=== PATIENT | male | born 1960 | race African-American/Black ===

== ENCOUNTER 2018-09-23 06:53 | Inpatient (IN) | payer OTHER ==
[~2018-09-23] VITALS: Ht 188 cm; Wt 86.2 kg
[2018-09-23 09:16] VITALS: BP 114/81
[2018-09-23 10:24] LABS: ALBUMIN 4.2 g/dL (3.4-5.0); DIRECT BILIRUBIN 0.2 mg/dL (<0.1-0.3); TOTAL PROTEIN 9.2 g/dL (6.4-8.2)
[2018-09-23 10:28] LABS: MCV 81.4 fL (80.0-100.0)
[2018-09-23 10:29] LABS: HEMATOCRIT 46.3 % (42.0-52.0); HEMOGLOBIN 15.8 gm/dL (14.0-18.0); MCH 27.8 pg (26.0-34.0); MCHC 34.2 g/dL (28.0-37.0); RBC 5.69 mil/uL (4.50-6.00); WBC 10.8 thou/uL (4.0-11.0)
[2018-09-23 10:38] LABS: ALBUMIN 4.2 g/dL (3.4-5.0); CALCIUM 9.7 mg/dL (8.5-10.1); CREATININE 0.9 mg/dL (0.7-1.3); POTASSIUM 4.1 mmol/L (3.5-5.1); TOTAL PROTEIN 9.2 g/dL (6.4-8.2)
[2018-09-23 10:50] LABS: TSH 1.756 uIU/mL (0.358-3.740)
--- NOTE | 2018-09-23 11:26 | NUR ---
ARRIVES TO UNIT VIA CART FROM [facility] ER-58 YR OLD MALE. MEDICAL HX INCLUDES SEIZURE DO,HTN,SP CVA AND LA 2003,ETOH ABUSE.ADMITTED WITH RECENT COMMAND HALLUCINATIONS AND SUICIDAL IDEATION. STATES HEARS VOICES TELLING HIM HE IS BAD BUT "I JUST IGNORE THEM" DOES REPORT BEING OFF OF MEDS X 2 MONTHS STATING HE COULD NOT AFFORD THEM. UNABLE TO PROVIDE EXTENSIVE MEDICAL OR PSYCHIARTIC HX-IS ORINETED X3 BUT STATES "I JUST CAN'T REMEMBER ALL THAT WELL" VS WNL-DOES REPORT "ALL OVER " PAIN RATED A 5 ON 1-10 SCALE. SPEECH IS DIFFICULT TO UNDERSTAND-SLIGHTLY GARBLED BUT RESPONSES ARE RELEVENT AND GOAL DIRECTED FREQUENTLY STATES "I'M SORRY I CANT REMEMBER" ASSISTED TO BED WITH SBA X1-PROVIDED FOOD/FLUIDS-COOPERATIVE WITH ADMIT PAPERWORK. NO SKIN BREAKDOWN NOTED
--- NOTE | 2018-09-23 11:29 | EKG ---
[place] [address] [address] [place] [address] ELECTROCARDIOGRAM REPORT Name: ALYSON DAVIS Room #: [facility] ADM IN M.R.#: [id number] ������������������ Admission: 09/23/18 ������������������ Attend Phys: Aftab Stuart DO Discharge: ������������������ Date of : 60 Report #: [id number] ����������������������������������������������������������������� [id number] THIS REPORT FOR: //name// [facility] Test Date: 2018-09-23 Test Time: 08:58:13 Pat Name: ALYSON DAVIS Department: Room: [facility] Gender: M Brick Off Bearer: VALENTÍN : 1960 Requested By: Cortney Garber Order Number: [id number] MD: Phil Wei Measurements Intervals [place] Rate: 53 P: 37 HI: 202 QRS: 9 QRSD: 109 T: 24 QT: 451 QTc: 424 Interpretive Statements Sinus bradycardia Borderline prolonged HI interval Repolarization abnormality, consider early repolarization No previous ECGs available for comparison Electronically Signed On 09-23-2018 11:28:58 CDT by Phil Wei [email or web address] ��������������������������������������������� <ELECTRONICALLY SIGNED> ���������������������������������������� By: Phil Wei MD, [facility] ��������������������������������������������� 09/23/18 1128 D: 0758 7 Phil Wei MD, FAC /EPI
[2018-09-23 21:37] VITALS: BP 107/69
[2018-09-24 02:05] LABS: GLYCOHEMOGLOBIN (HGB A1C) 5.5 % (4.8-5.6)
--- NOTE | 2018-09-24 02:10 | NUR ---
NURSES NOTE - ASSUMED CARE OF PATIENT AT 1900. UPON FIRST GREETING WITH PATIENT, PATIENT WAS IN ROOM WITH EYES CLOSED WITH EVEN RR AND UNLABORED. HE OPENED HIS EYES TO MY VOICE TO DO A RAPID ASSESSMENT PATIENT WAS JUST ADMITTED THIS DAY. HE IS DIFFICULT TO UNDERSTAND AT TIMES DUE TO POOR DENTAL HYGIENE AND CARE. HE REPORTS A LONG HX OF CV HEALTH PROBLEMS. HE IS PLEASANT TO SPEAK WITH AND GOAL DIRECTED. HE DOES ENDORSE SI THOUGHTS BUT REPORTS THAT THESE THOUGHTS ARE FLEETING AT TIMES. HE DID NOT REVEAL ANY AH,VH,HI. HE DENIED MEDICAL CONCERNS WITH NO S/S OF DISTRESS. NURSING WILL MAINTAIN ALL PRECAUTIONS TO ENSURE SAFETY AT ALL TIMES.
--- NOTE | 2018-09-24 06:19 | NUR ---
ALYSON SLEPT 12 HOURS OF SLEEP
[2018-09-24 07:00] VITALS: BP 107/71
--- NOTE | 2018-09-24 11:09 | HC ---
[facility] [place] [address] CONSULTATION Name: ALYSON DAVIS Room #: 525B-B ADM IN M.R.#: [id number] Admission: 09/23/18 ������������������ Attend Phys: Aftab Stuart DO Discharge: ������������������ Date of : 60 Report #: [id number] THIS REPORT FOR: //name// CC: Aftab Juan NEUROLOGY CONSULTATION HISTORY OF PRESENT ILLNESS: The patient is a 58-year-old male with a complicated medical history. According to records received from [facility], the patient has a history of seizure disorder. Apparently, he was on a 200 mg dose of Vimpat, but the patient states he has not taken his medication. I asked him what he does when he has a seizure, he told me he does not have seizures. He has never had a seizure related to stopping drinking. However, his records from [place] clearly indicate that he has had seizures in the past. The patient states that last week his hands began to shake, but he was aware of them shaking. Unfortunately, the patient is a poor historian. No CT scan results were in the information received from [place]. The patient was on a combination of lamotrigine and Vimpat. However, the patient has not been taking any anti-seizure medication. According to the hospital records at [facility], the patient has been off medications for an unspecified length of time. PAST MEDICAL HISTORY: Coronary artery disease, myocardial infarction, Dandy-Walker formation, GERD, alcohol abuse, drug abuse, bipolar disorder, and schizophrenia. PAST SURGICAL HISTORY: Pacemaker. MEDICATIONS: The patient is currently taking aspirin 81 mg daily, atorvastatin 20 mg at bedtime, risperidone 1 mg at bedtime. ALLERGIES: None. PHYSICAL EXAMINATION: VITAL SIGNS: Temperature is 36.7, pulse rate of 51, respiratory rate 16, blood pressure 114/81, bedside pulse oximetry 98% on room air. NEUROLOGIC: Cranial nerves 2-12 are grossly intact. The patient has some slurred speech. He is missing quite a few teeth. The patient has symmetrical strength in all 4 extremities with tone and bulk normal. Reflexes are symmetrical. Plantar responses are flexor. Coordination demonstrates no evidence of dysmetria. LABORATORY DATA: Hematology: White blood cell count 10.8, hemoglobin 15.8, hematocrit 46.3. Chemistry: Sodium 134, potassium 4.1, chloride 101, carbon dioxide 26, BUN 15, creatinine 0.9. B12 of 718. TSH 1.756. [address] [address] CONSULTATION Name: ALYSON DAVIS Room #: 525B-B [facility] IN ..#: [id number] Admission: 09/23/18 ������������������ Attend Phys: Aftab Stuart, Discharge: ������������������ Date of : 60 Report #: [id number] IMPRESSION AND PLAN: This patient has a prior history of seizure disorder. At this point, it is best to put the patient back on Vimpat. I will begin 100 mg twice a day. He cannot go back on lamotrigine 100 mg twice a day if he has not taken this medication for several months because the rapid introduction of lamotrigine can cause a life threatening rash. I have also ordered a CT scan of the head. I thank you for your kind referral of the patient and we will see the patient tomorrow. ��������������������������������������������� <ELECTRONICALLY SIGNED> ���������������������������������������� By: Alka Amor DO ��������������������������������������������� 09/24/18 1109 1229 1337 Alka Amor DO /nt
[2018-09-24 19:40] VITALS: BP 106/77
--- NOTE | 2018-09-24 23:13 | NUR ---
Care assumed of patient at 1900: Patient sitting quietly in bed at start of shift. Patient encouraged to come to day room for evening snack and socialization. Patient ambulated to day room with FWW with stand by assist. Weakness observed to left side post CVA. Patient denies pain or discomfort. Reports that the medication Neurontin started today was a big help for his pain. Patient presents with flat affect, depressed mood. Patient smiled occasionally while speaking with nurse. Patient denies SI/HI/AH/VH. No delusional or paranoia behaviors observed. Patient did report that he did fall last prior to admission. Patient alert and oriented x4. Occasional confusion observed. Spoke with his fiance on the phone this evening. Ate 100% snack. Reported that he enjoyed sitting in the day room and watching game shows on TV. Patient educated on need of urine sample. Specimen cup provided and in bathroom. Patient resting quietly in bed at this time.
[2018-09-25 06:07] LABS: URINE BILIRUBIN NEGATIVE (Negative); URINE BLOOD NEGATIVE (Negative); URINE CLARITY CLEAR; URINE COLOR YELLOW; URINE GLUCOSE-RANDOM* NEGATIVE (Negative); URINE KETONES NEGATIVE (Negative); URINE LEUKOCYTES-REFLEX NEGATIVE (Negative); URINE NITRITE-REFLEX NEGATIVE (Negative); URINE PROTEIN (DIPSTICK) NEGATIVE (Negative); URINE SPECIFIC GRAVITY 1.015 (1.005-1.035); URINE UROBILINOGEN 0.2 E.U./dl (0.2-1.0)
[2018-09-25 06:13] LABS: AMP/METHAMP Negative (Negative); BARBITURATES Negative (Negative); BENZODIAZEPINES Negative (Negative); COCAINE Negative (Negative); METHADONE Negative (Negative); OPIATES Negative (Negative); PCP Negative (Negative)
[2018-09-25 08:00] VITALS: BP 132/73
--- NOTE | 2018-09-25 11:57 | NUR ---
ASSUMED PATIENT CARE AT 0700. NURSE WENT TO PATIENT'S ROOM AT 0900 TO GIVE 0900 MEDS, OBSERVED PATIENT LYING ON FLOOR TO BR ON LEFT LATERAL POSITION. PATIENT RESPONDED TO VERBAL STINULI, ASSISTED UP TO W/C TIMES 3 STAFF. STATED THAT HIS LEFT LEG HURT. DR. KAHN CONTACTED, ORDERED CT WITHOUT CONTRAST TO HEAD, X-RAY OF LEFT LEG FEMUR.
--- NOTE | 2018-09-25 18:45 | NUR ---
NURSE OBSERVED PATIENT LYING ON BATHROOM FLOOR AT 0810 AM. PATIENT STATED THAT HE GOT DIZZY. ABLE TO MOVE EXTREMETIES. VITAL SIGNS TAKEN AFTER FALL, FIRST VS OF THE DAY; 132/73, 65 PULSE, R-12, O2 100%. DR. VENEGAS NOTIFIED, ORDERED CT OF HEAD AND X-RAY OF L FEMUR. HOWEVER, PATIENT REFUSED TO GO FOR CT AND ALSO REFUSED X-RAY OF L FEMUR. PATIENT ADMINISTERED TYLENOL 650 MG AT 1800; HAD NOT REQUESTED ANY PAIN MEDICATION UNTIL THAT TIME. REPORT GIVEN TO ECG TECHNICIAN.
[2018-09-25 20:17] VITALS: BP 124/78
--- NOTE | 2018-09-26 01:30 | NUR ---
AT APPROXIMATELY 1310 PT ASKED THIS NURSE TO SAFELY ENSURE HE COULD MAKE IT TO THE RESTROOM WITHOUT ASSISTANCE OF STAFF. PT AMBULATED WITH WALKER WITH NO ISSUES. PT VOIDED, THEN PATIENT WAS AMBULATING WITH WALKER BACK TO PTS BED HE BECAME DIZZY AND APPEARED HE WAS FALLING BACKWARDS, THIS STAFF MEMBER INTERVENED, AND PT STATED 'I DONT KNOW WHAT HAPPENED I JUST FELT FUNNY.' THIS NURSE TOOK VS, 106/79, RR 14, 100% O2 ON RA, PULSE 49. AFTER LAYING IN BED FOR APPROXIMATELY 2-3 MINUTES PULSE ELEVATED TO 58. THIS NURSE ENCOURAGED FLUID INTAKE AND TO RING BED SIDE HUGGINS IF NEEDED STAFF.
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
[2018-09-26 07:55] VITALS: BP 105/65
--- NOTE | 2018-09-26 11:45 | NUR ---
PSYCHOLOGY TEACHER completed 30 minute 1:1 visit with pt upon his request. See one to one charting.
--- NOTE | 2018-09-26 12:39 | NUR ---
PT OBSERVED TO LOOSE BALANCE IN DAYRROM DURING RT EXERCISE GROUP. PER REPORT OF STAFF IN DAYROOM PT WAS STANDING,HOLDING ON TO WALKER-DOING LEG LIFTS IN THIS POSTURE DESPITE BEING ASKED BY STRING CUTTER TO REMAIN SEATED-PER WITNESS ACCOUNTS RAISED RIGHT LEG,LOST BALANCE AND FELL TO LEFT SIDE-GRABBED ON TO NEARBY TABLE PRIOR TO TORSO/TRUNK STRIKING FLOOR BUT DID APPEAR TO STRIKE LEFT KNEE,OUTER DAVID ON FLOOR- DENIES PAIN. ABLE TO MOVE ALL EXTRMETIES WITH PAIN/DISCOMFORT. NO OTED OR REPORT BRUISING,ABRASIONS OR LACERATIONS. PT STATES "I FALL ALL THE TIME IN MY APARTMENT I'M OK-ATTEMPTS TO EDUCATION RE SAFE MOVEMENT REPEATED BY THIS RM,OT,RT AND MD HOWEVER PT CONTINUES TO VERBALIZE/DEMONSTRATE IMPULSIVE BEHAVIOR,INFLATED SENSE OF OWN PHYSICAL ABILITIES. VS 115/68 P60 R14 02 SAT 97 PERCENT AT APPROX 0945 POST FALL, USING ROLLER WALKER FOR AMBULTION AND GAIT IS SLOW BUT STEADY WITH USE OF WALKER-INDEPENT IN TOILETING AND ADLS. CHAIR ALARM ADDED TO CURRENT [place] RISK CARE PLAN-PT REQUESTS GF WHO IS HIS EMERGENCY CONTACT NOT BE NOTIFIED OF FALL STATING "SHE ISN'T REALLY HEALTHY HERSELF"
[2018-09-26 14:06] VITALS: BP 125/74
--- NOTE | 2018-09-26 16:52 | NUR ---
KIMMY spoke with pt gianna concerning him refusing to speak with her. KIMMY explained that it is the pt right to refuse. KIMMY explained that she will let the pt know that she called, and would like him to call the back, and give her a call. SW will folow-up with pt.
--- NOTE | 2018-09-26 22:52 | NUR ---
ASSUMED CARE OF THE PT AT 191 PM. ALERT ET ORIENTED X 3. MAKES NEEDS KNOWN. WALKS WITH A WALKER TO THE BATHROOM. DENIES SI AND HI, DENIES A/V HALLUNCIATIONS. HEART RATE REGULAR. LUNGS CLEAR BILATERALLY, RESP., EVEN, AND UNLABORED. +BS HEARD IN ALL 4 QUADRANTS. ABD SOFT ET NONTENDOR. +PP BILATERALLY. REMAINS ON 12 MINUTE CHECKS FOR HIS SAFETY.
--- NOTE | 2018-09-27 06:04 | NUR ---
the pt slept 7.6 hours last night.
[2018-09-27 08:25] VITALS: BP 103/70
--- NOTE | 2018-09-27 11:26 | NUR ---
Nutrition: pt admitted to [facility] unit with SI, auditory hallucinations. Saw due to wound risk which per physician notes is subcutaneous mass inguinal area. General surgery consult, possible lymph note. US ordered. Pt eats well, 100% of meals so far. Noted missing dentition, reports no chewing difficulty on regular diet. States no weight loss, is interested in gaining weight. BMI 24, WNL. Requests Ensure daily, will offer at dinner. Consider low nutrition risk.
--- NOTE | 2018-09-27 12:13 | NUR ---
HAS BEEN ATTENDING GROUPS TODAY WITH MINIMAL PROMPTING-WILL STRUCTURE FREE TIME IN DAYROOM UNTIL A MALE PEER BEGINS TO YELL PROFMYNOR-WENT TO ROOM AND STATES THIS IS "TOO UPSETTING" "I WANT TO HIT HIM" DOES REPORT INTERMITTENT PASSIVE SI "EARLIER" TODAY-BUT IS VAGUE WHEN REPORTING DENIES PLAN/INTENT-AFFECT REMAINS CONSTRICTED BUT WILL SMILE/OFFER SOME SPONTANEOUS CONVERSATION WITH NURSING. NO NOTED PEER INTERACTION. REPORTING LOWER EXTREMITY PAIN-WORSE ON LEFT-WITH PAIN RATED A 8 ON 1-10 SCALE. TYLENOL 650MG GIVENPO PRN AT 0930 WITH VERBALIZED FAIR RESULTS. GAIT STEADY WITH USE OF ROLLER WALKER
--- NOTE | 2018-09-28 00:30 | NUR ---
ASSUMED CARE @ 1900 ON 09/27/18, IN BED EYES CLOSED RESPIRATIONS EVEN AND UNLABORED. AWAKENED TO VOICE, A&O X 3, REPORTS SAD, ANGRY AND DISAPPOINTED IN SELF. REPORTS PAIN IN L LEG. VSS. HEMIPARESIS TO LEFT SIDE NOTED. PAIN PRIMARILY IN L LEG. WILL CONTINUE TO MONITOR Q 12 MINUTES FOR PATIENT SAFETY.
--- NOTE | 2018-09-28 04:05 | NUR ---
GOT UP TO USE TOILET @ 03:40, REPORTED FEELING SHAKY. FSBS 83, OFFERED APPLE JUICE, MILK AND GRAHM CRACKERS WITH PEANUT BUTTER. WILL FOLLOW UP WITH FSBS.
--- NOTE | 2018-09-28 04:35 | NUR ---
FOLLOW UP FSBS 107 @ 04:30.
--- NOTE | 2018-09-28 06:46 | NUR ---
SLEPT 9.1 HOURS TOTAL.
[2018-09-28 19:37] VITALS: BP 114/68
--- NOTE | 2018-09-28 21:15 | NUR ---
ASSUMED CARE OF THE PT AT 191 PM. THE PT WAS WALKING IN THE HALLWAY WHEN THIS MILLINER HELPER CAME ON DUTY. HE WALKS WITH A WALKER, HAS A FAIRLY STEADY GAIT. HEART RATE REGULAR, LUNGS CLEAR BILATERALLY. RESP., EVEN, AND UNLABORED. +BS HEARD IN ALL 4 QUADRANTS. RATES HIS ANXIETY A 2/10 AND HIS DEPRESSION A 2/10. DENIES SI/HI/ A/V HALLUNICATIONS. +PP BILATERALLY. REMAINS ON 12 MINUTE CHECKS FOR HIS SAFETY.
[2018-09-29 05:40] LABS: HEMATOCRIT 39.6 % (42.0-52.0); HEMOGLOBIN 13.2 gm/dL (14.0-18.0); MCH 27.5 pg (26.0-34.0); MCHC 33.4 g/dL (28.0-37.0); MCV 82.3 fL (80.0-100.0); RBC 4.82 mil/uL (4.50-6.00); RDW 14.8 % (10.5-14.5); WBC 4.8 thou/uL (4.0-11.0)
[2018-09-29 06:35] LABS: CALCIUM 9.4 mg/dL (8.5-10.1); CREATININE 0.9 mg/dL (0.7-1.3); MAGNESIUM 2.1 mg/dL (1.8-2.4); POTASSIUM 4.4 mmol/L (3.5-5.1)
[2018-09-29 10:04] VITALS: BP 102/66
--- NOTE | 2018-09-29 11:21 | NUR ---
KIMMY spoke with pt about d/c today and he stated that he was ok with that. KIMMY set up transportion with a cab pass #[id number] for 2 pm. Reported this to pt and nursing
[2018-09-29] MEDS ORDERED: ACETAMINOPHEN325 M1 PO (11:54)
[2018-09-29] MEDS ORDERED: LIPITOR 20 MG T20 M1 PO (11:54)
[2018-09-29] MEDS ORDERED: ASA81BEC PO (11:54)
[2018-09-29] MEDS ORDERED: GABAPENTIN 100100 MG PO (11:55)
[2018-09-29] MEDS ORDERED: RISPERDAL 1 MG T1 MG PO (11:56)
[2018-09-29] MEDS ORDERED: VIMPAT100 MG PO (11:56)
[2018-09-29] MEDS ORDERED: LORAZEPAM 22 MG/1 ML IM (11:56)
[2018-09-29 14:15] VITALS: BP 102/66
--- NOTE | 2018-09-29 15:48 | NUR ---
PATIENT DEPARTED AT 0300 VIA CAB VOUCHER. REVIEWED POSSESSIONS AND PAPERWORK - EXPLAINED TO FU WITH PCP AND SUPPORT SYSTEM - RETURNED TO HIS HOME. PRESCRIPTIONS GIVEN WITH PACKET OF DISCHARGE TO PATIENT. ESCORTED DOWN BY STAFF.
== END 2018-09-29 16:07 | disposition home or self-care (01) | DRG 885 ==
LOC: SBH 06:53
PROVIDERS: Internal Medicine; Nurse Practitioner Psychiatric/Mental Health; ADMIT Psychiatry & Neurology Psychiatry
DX: F29 Unspecified psychosis not due to a substance or known physiological condition (principal); G81.94 Hemiplegia, unspecified affecting left nondominant side; F31.9 Bipolar disorder, unspecified; F39 Unspecified mood [affective] disorder; I25.10 Atherosclerotic heart disease of native coronary artery without angina pectoris; K21.9 Gastro-esophageal reflux disease without esophagitis; G40.909 Epilepsy, unspecified, not intractable, without status epilepticus; F10.10 Alcohol abuse, uncomplicated; F17.210 Nicotine dependence, cigarettes, uncomplicated; R19.09 Other intra-abdominal and pelvic swelling, mass and lump; Z86.73 Personal history of transient ischemic attack (TIA), and cerebral infarction without residual deficits; I25.2 Old myocardial infarction; Z95.0 Presence of cardiac pacemaker; Z79.82 Long term (current) use of aspirin; Z79.899 Other long term (current) drug therapy
CPT/HCPCS: 10880

== ENCOUNTER 2020-10-23 10:34 | Emergency (ER) | payer OTHER ==
[~2020-10-23] VITALS: Ht 185.4 cm; Wt 94.8 kg
[~2020-10-23 10:34] MED LIST: ACETAMINOPHEN325 M1 PO; ASA81BEC PO; GABAPENTIN 100100 MG PO; LIPITOR 20 MG T20 M1 PO; LORAZEPAM 22 MG/1 ML IM; RISPERDAL 1 MG T1 MG PO; VIMPAT100 MG PO
[2020-10-23 10:35] VITALS: BP 121/80
[2020-10-23] MEDS ORDERED: NORVASC5 MG PO (10:49)
[2020-10-23] MEDS ORDERED: ELIQUIS5 MG PO (10:50)
[2020-10-23] MEDS ORDERED: LIPITOR 40 MG T40 M1 PO (10:50)
[2020-10-23] MEDS ORDERED: KEPPRA750 MG PO (10:50)
[2020-10-23] MEDS ORDERED: NEURONTIN300 MG PO (10:50)
[2020-10-23] MEDS ORDERED: RISPERDAL2 MG PO (10:51)
[2020-10-23] MEDS ORDERED: PROTONIX 20 MG20 M1 PO (10:51)
== END 2020-10-23 11:29 ==
LOC: ER 10:34
DX: R45.851 Suicidal ideations (principal); Z20.822 Contact with and (suspected) exposure to COVID-19; I25.10 Atherosclerotic heart disease of native coronary artery without angina pectoris; F31.9 Bipolar disorder, unspecified; F20.9 Schizophrenia, unspecified; Z79.899 Other long term (current) drug therapy; Z88.1 Allergy status to other antibiotic agents; Z88.6 Allergy status to analgesic agent

== ENCOUNTER 2020-10-23 11:36 | Inpatient (IN) | payer OTHER ==
[~2020-10-23] VITALS: Ht 185.4 cm; Wt 85.3 kg
[2020-10-23 11:25] VITALS: BP 118/49
[~2020-10-23 11:36] MED LIST changes: +ELIQUIS5 MG PO; +KEPPRA750 MG PO; +LIPITOR 40 MG T40 M1 PO; +NEURONTIN300 MG PO; +NORVASC5 MG PO; +PROTONIX 20 MG20 M1 PO; +RISPERDAL2 MG PO
--- NOTE | 2020-10-23 15:03 | NUR ---
PATIENT CAME [place] [facility] HAD A COVID TEST DONE ON ER WHICH WAS NEGATIVE, HE GOT TO THE FLOOR 1315, IN ROOM 528A, VITAL SIGNS 118/49,60,18,100% OF 02 ON ROOM AIR, ALERT AND ORIENTED X4 CALM AND COOPERATIVE, ACTIVE BOWEL SOUND, LUNGS ARE CLEAR, HE IS LAYING IN BED PROVIDED HIM WITH NON SKID FOOTWEAR, BED LOW, HE SIGNED HIMSEIF IN, HE HAS A PACEMAKER. HIS PRESENTING PSYCHIATRIC PROMBLES SI, HE OD ON HIS PAIN MEDICATION DUE THE OF HIS CLOSE FRIEND, THOUGH HE DENIES SI/HI. WILL COINTUNE TO MONITOR PATIENT
--- NOTE | 2020-10-23 16:20 | NUR ---
Alert and orientated x 4. Initially states he is at [facility] but then is able to correct himself. Also stated it was Dec initially but then quickly corrected himself to October. Denies SI/HI. Breath sounds clear. Reg HR auscultated. Color pink with brisk capillary refill and palpable peripheral pulses. No edema noted. Denies need to void at this time. Active bowel sounds over soft, rounded abdomen. States he has not had BM in 2 weeks.
[2020-10-23 18:18] VITALS: BP 118/49
[2020-10-23 19:33] VITALS: BP 106/63
--- NOTE | 2020-10-23 22:19 | NUR ---
Assumed patient care at 1900. Patient lying in bed, wakes easily to verbal stimulation. Sits up to take medications, whole without difficulty. Denies pain/SI/HI/AVH. States mood is "fine", appears depressed. Will continue to monitor q12 hr safety checks.
[2020-10-24] VITALS (26 sets, daily range): BP systolic 92–213; BP diastolic 45–150
[2020-10-24 06:50] LABS: CHOLESTEROL 131 mg/dL (<200); HDL CHOLESTEROL 55 mg/dL (>40); LDL CHOLESTEROL 57 mg/dL (<100); TC:HDL 2.4 Ratio (Not establshd); TRIGLYCERIDE 99 mg/dL (<150); VLDL 20 mg/dL (<40)
--- NOTE | 2020-10-24 08:41 | H ---
[facility] [place] [address] HISTORY AND PHYSICAL Name: ALYSON DAVIS Room #: 528A-A ADM IN M.R.#: [id number] Admission: 10/23/20 Attend Phys: Aftab Stuart DO Discharge: Date of : 60 Report #: [id number] THIS REPORT FOR: cc: FAM - Family physician unknown FAM - Family physician unknown Aftab Stuart DO ~ DATE OF SERVICE: 10/23/2020 INPATIENT PSYCHIATRIC EVALUATION ATTENDING PSYCHIATRIST: Aftab Stuart DO WRESTLING COACH: Pernell Bo M.D. REASON FOR ADMISSION: Transferred from [facility] for suicidal ideation. SOURCES OF INFORMATION: Interview with the patient, emergency room records, lab work records from [facility]. HISTORY OF PRESENT ILLNESS: This is a 60-year-old black male, I believe he is single. The patient at bedside denied suicidal ideation to this author. Denies allergies. However, he was assessed last night, looks like just after midnight, and he reported to the examiner, PETER Lara, he was alert and oriented x 4; reported, "I have been feeling suicidal for the past few days." States the SI has been constant and he tried to overdose on naproxen today. The patient is still experiencing SI, but last night had a plan of jumping off a bridge. The patient is grieving the of a good friend who of a heart attack recently. He was also struggling in his relationship with his girlfriend and these stressors have led to the patient to feel suicidal. The patient has denied recently giving things away that are important to him and also denies writing any kind of suicide letter, posting any suicidal thoughts in social media. The patient has another risk factor for attempting suicide, which is chronic pain in his back and legs. The patient endorses symptoms of depression including depressed mood with SI. Denies any changes in sleep or appetite or energy level. The patient has a history of a serious overdose in 2010 which required him to be revived. Inpatient hospitalization was recommended by the crisis HP (qualified [facility]). Additional notes from [facility], the patient reports being diagnosed with bipolar disorder several years ago. He states when he has symptoms, he gets in the moods, he does not want to talk to anyone and then he will hear voices or see things that are not there. Again, history of overdosing on medication and beer in 2010, several psychiatric admissions at [facility] mostly for SI and alcohol detoxification or withdrawal. He was hospitalized at [facility] in 2010 after the serious overdose. [address] [address] HISTORY AND PHYSICAL Name: ALYSON DAVIS Room #: 528A-A [facility] IN .R.#: [id number] Admission: 10/23/20 Attend Phys: Aftab Stuart DO Discharge: Date of : 60 Report #: [id number] OUTPATIENT TREATMENT HISTORY: He has only been to [facility] services. Sees Dr. Corona, client there for 2-3 years. Does not have a case management associate. Laboratories from the [facility], sodium 139, potassium 4.0, chloride 108, bicarbonate 22, anion gap 9, glucose 85, BUN 11, creatinine 0.98, GFR greater than 90, calcium 9.4, osmolality 287. Magnesium 1.9, total protein 7.1, albumin 4.1, globulin 3.0, total bilirubin 0.6, direct 0.15, indirect 0.5, alkaline phosphatase 59, AST 23, ALT 18, lipase 28. BNP 25. Troponin high sensitivity 4.9. White count 5.50, H and H 13.2 and 39.6, platelet count clumped. PHYSICAL EXAMINATION: Grossly normal from [facility]. PAST MEDICAL HISTORY: Includes history of seizures, substance abuse, somatoform disorder, osteoarthritis, myopia, alcohol use disorder, mixed hyperlipidemia, irregular heartbeat, hypertension, high blood pressure, epilepsy, dizziness, depression, Dandy-Walker malformation, history of cocaine use, mental health history of schizophrenia, atrial fibrillation, history of sick sinus syndrome status post cardiac pacemaker placement. Currently, drinks beer 3-5 times per week; unclear about cigarette smoking, family history of congestive heart failure in father, mother, breast cancer in mother, diabetes mellitus in father. HOME MEDICATIONS: Lacosamide 100 mg p.o. b.i.d., gabapentin 300 mg p.o. t.i.d., amlodipine 5 mg p.o. daily, risperidone 2 mg p.o. b.i.d. Interestingly, there was noted to be Keppra 750 mg p.o. b.i.d. I am questioning if he is on both Keppra and lacosamide. So, I will have to get a better handle on that. Atorvastatin 40 mg a day, Protonix 40 mg daily, Eliquis 5 mg b.i.d. ADDITIONAL INFORMATION: The patient received a call around 1300 yesterday from a family member of one of his close friends that the friend at [facility] from a heart attack. This caused the patient to punch a wall and began to think about jumping off a bridge. He also took 650 mg naproxen, but admitted it was a partial attempt to kill himself. REVIEW OF SYSTEMS: From the [facility]: CONSTITUTIONAL: Negative. SKIN: Negative. EYES: Negative. EAR, NOSE, MOUTH, THROAT: Negative. RESPIRATORY: Negative. CARDIOVASCULAR: Negative. GASTROINTESTINAL: Negative. [facility] [address] [place] [address] HISTORY AND PHYSICAL Name: ALYSON DAVIS Room #: 52-A [facility] IN ..#: [id number] Admission: 10/23/20 Attend Phys: Aftab Stuart DO Discharge: Date of : 60 Report #: [id number] GENITOURINARY: Negative. MUSCULOSKELETAL: Negative. NEUROLOGIC: Negative. PSYCHIATRIC: SI with plan to jump off a bridge. ENDOCRINE: Negative. HEMATOLOGIC AND LYMPHATIC: Negative. ALLERGY AND IMMUNOLOGIC: Negative. Otherwise, negative on 10-point review of systems. PHYSICAL EXAMINATION: VITAL SIGNS: Currently here at [facility], temperature 98.7, pulse 58, respirations 16, BP 121/80, O2 sat 97%. MUSCULOSKELETAL: Exam lying in bed. Gait not tested. MENTAL STATUS EXAMINATION: This well-developed, ill-appearing black male, appearing stated age. Attention fair. Concentration limited. Speech normal rate, volume, and tone. Thought process, linear and goal oriented. Thought content relative poverty. Denied suicidal or homicidal ideation, auditory, visual, or tactile hallucinations. Mood and affect constricted, congruent, stated okay. Memory not formally tested this time. Insight and judgment are both limited. Fund of knowledge below average. FORMULATION: A 60-year-old black male sent over to us for SI from [facility]. The patient has a history of alcoholism and cocaine use, has a number of medical comorbidities. Psychiatric diagnoses include somatoform disorder, depression, schizophrenia. DIAGNOSES: Unspecified depression, rule out schizoaffective disorder. The patient has multiple medical problems including hypertension, coronary artery disease, sick sinus syndrome, status post pacemaker implantation, Dandy-Walker malformation, substance use disorders x 2. PLAN: He is admitted voluntarily to [facility] to evaluate and stabilize. The patient has a number of issues including dealing with his grief reaction. It is unclear at this time how compliant he is with outpatient mental health, expect to have him 3-5 days. Regarding his medications, we will order Protonix, atorvastatin, aspirin, amlodipine, risperidone 2 b.i.d., Vimpat 100 mg p.o. b.i.d., apixaban 5 mg p.o. b.i.d., gabapentin 300 mg p.o. t.i.d. to see how that works. I am going to try to avoid using Keppra with him due to his high propensity for psychiatric illness. Time spent on this case is at least 45 minutes, greater than 50% of the time was spent in review of records and coordination of care. [address] [address] HISTORY AND PHYSICAL Name: ALYSON DAVIS Room #: 528A-A ADM IN M.R.#: [id number] Admission: 10/23/20 Attend Phys: Aftab Stuart DO Discharge: Date of : 60 Report #: [id number] STRENGTHS: He is insured. WEAKNESSES: Long mental health history, substance abuse, comorbidities. <ELECTRONICALLY SIGNED> By: Aftab Stuart DO 10/24/20 0841 1157 1308 Aftab Stuart DO /nt
--- NOTE | 2020-10-24 09:20 | NUR ---
Admit to [facility]. Admitted for suicidal ideations. PMH: HLD, HTN, seizures, substance abuse, depression. Pt on regular diet with 100% intake at lunch yesterday, but refused dinner. Weight stable from last admit 2 years ago. Weight approrpiate. BMI 24.8. Low nutrition risk at this time.
[2020-10-24 15:11] LABS: HEMATOCRIT 42.6 % (42.0-52.0); HEMOGLOBIN 13.9 gm/dL (14.0-18.0); MCH 27.3 pg (26.0-34.0); MCHC 32.8 g/dL (28.0-37.0); MCV 83.4 fL (80.0-100.0); RBC 5.11 mil/uL (4.50-6.00); RDW 16.5 % (10.5-14.5); WBC 3.9 thou/uL (4.0-11.0)
--- NOTE | 2020-10-24 15:15 | NUR ---
Sitting in dining room most of AM sitting quietly with leg elevated up on walker. Requested Tylenol with AM meds for low back pain with some relief, 10/10 decreased to 8/10. Spoke with Dr. Stuart who added lidocaine patch for pain relief. No overt s/o pain. Assessment done at 1135: Alert and orientated X 4. Denies SI/HI. States Tylenol helped with pain, appreciative of lidocaine patch. Breath sounds clear. Reg HR auscultated. Color pink with brisk capillary refill and palpable peripheral pulses. No edema noted. Independent with voiding. States last BM was 2 days ago. Active bowel sounds over soft, rounded abdomen. Stood and ambulated to dining room with walker with slow steady gait. Ate lunch with peers without s/o distress.
[2020-10-24 15:22] LABS: ALBUMIN 3.6 g/dL (3.4-5.0); CALCIUM 9.1 mg/dL (8.5-10.1); MAGNESIUM 2.1 mg/dL (1.8-2.4); POTASSIUM 3.9 mmol/L (3.5-5.1); TOTAL BILIRUBIN 0.7 mg/dL (0.2-1.0); TOTAL PROTEIN 7.4 g/dL (6.4-8.2)
--- NOTE | 2020-10-24 17:14 | NUR ---
PT TRANSFERED TO 203. PT HAD ANOTHER SEIZURE LASTING APPROX 5MIN, ENDING AT 1710. DIRECTOR OF DIGITAL PLATFORMS WAS CALLED BY 2N RN RECEIVING PT. DR JOHNSON AT BEDSIDE. 2MG IV ATIVAN GIVEN. DR MCKEON AT BEDSIDE NOW. WILL AWAIT FURTHER ORDERS.
[2020-10-25 00:06] LABS: GLYCOHEMOGLOBIN (HGB A1C) 5.8 % (4.8-5.6)
== END 2020-10-24 16:55 | disposition short-term general hospital (02) | DRG 881 ==
LOC: SBH 11:36
PROVIDERS: Internal Medicine; ADMIT Psychiatry & Neurology Psychiatry; ATTEND Psychiatry & Neurology Psychiatry
DX: F32.9 Major depressive disorder, single episode, unspecified (principal); R45.851 Suicidal ideations; I10 Essential (primary) hypertension; I25.10 Atherosclerotic heart disease of native coronary artery without angina pectoris; I49.5 Sick sinus syndrome; M19.90 Unspecified osteoarthritis, unspecified site; E78.2 Mixed hyperlipidemia; G40.909 Epilepsy, unspecified, not intractable, without status epilepticus; F20.9 Schizophrenia, unspecified; I48.91 Unspecified atrial fibrillation; Z79.899 Other long term (current) drug therapy; Z79.01 Long term (current) use of anticoagulants; Z82.49 Family history of ischemic heart disease and other diseases of the circulatory system; Q03.1 Atresia of foramina of Magendie and Luschka; Z88.8 Allergy status to other drugs, medicaments and biological substances
CPT/HCPCS: 10880

== ENCOUNTER 2020-10-24 17:13 | Inpatient (IN) | payer OTHER ==
[~2020-10-24] VITALS: Ht 185 cm; Wt 96.2 kg
--- NOTE | 2020-10-24 18:21 | NUR ---
PT ADMITTED TO ROOM 203 WITH SEIZURES. SOON ASA PT WAS IN ROOM HE BEGAN HAVING SEIZURES AND RAPID RESPONSE WAS CALLED. PT WAS GIVEN MEDICATION VIA IV TO HELP CONTROL SEIZURES. PT TAKEN TO CT FOR IMAGING. SIDE RAILS PADDED PER PROTOCOL. BED LOW AND LOCKED, TELE APPLIED AND REVEALS A-PACED RYTHM. WILL CONTINUE TO ASSESS.
[2020-10-24 19:14] VITALS: BP 120/70
[2020-10-24 21:59] LABS: CALCIUM 8.9 mg/dL (8.5-10.1); CREATININE 1.1 mg/dL (0.7-1.3); POTASSIUM 4.1 mmol/L (3.5-5.1)
[2020-10-25] VITALS (29 sets, daily range): BP systolic 71–111; BP diastolic 38–72
--- NOTE | 2020-10-25 07:38 | NUR ---
ASSUMED CARE OF PT AT 1900, PT A/O X 2. ASSESSMENT COMPLETED NOTED. AT 2222 PT WITNESSED HAVING SEIZURE X 5MINS,MASONRY INSPECTOR NOTIFIED ORDERS RECIEVED AND INITIATED.AT 2252 PT WITNESSED HAVING SEIZURE X 16 MINUTES, NO LOSS OF BOWEL OR BLADDER. MASONRY INSPECTOR NOTIFIED ORDERS RECIEVED AND INITIATED, 213 PT WITNESSED HAVING SEIZURES X 6 MINUTES, MASONRY INSPECTOR NOTIFIED, NEUROLOGY PG, ORDERS RECIEVED AND INITIATED. PT REMAINS IN SEIZURE PRECAUTIONS AT THIS TIME.
--- NOTE | 2020-10-25 09:34 | NUR ---
SHORTLY AFTER COMING ON SHIFT AT 0710 PATIENT HAD A SEIZURE, GAVE 5MG VALIUM SEIZURE LASTED APPROX [address] SCHULER NOTIFIED OF EVENT AND VITAL SIGNS. UNABLE TO OBTAIN ORAL OR AXILLARY TEMP. RECTAL TEMP 95.3, DR. SCHULER NOTIFIED. RECIEVED ORDERS TO TRANSFER TO ICU. AT 0838 PATIENT HAD ANOTHER SEIZURE, LASTING APPROX 5 MINS WITH 2MG ATIVAN GIVEN. DR. GILES (NEUROLOGY) NOTIFIED OF EVENTS AND TRANSFER TO ICU. AT 0905 REPORT CALLED TO ICU NURSE MAN YORK. NO QUESTIONS AT TIME OF TRANSFER. PERSONAL BELONGINGS AND WALKER TRANSFERED WITH PATIENT. ATTEMPTED TO CALL SISTER KIM BUT NO ANSWER.
--- NOTE | 2020-10-25 11:10 | NUR ---
VAT CONSULTED FOR TL PICC. PICC PLACED TO RIGHT UPPER BRACHIAL VEIN, TRIMMED 45CM/2CM EXTERNAL. TIP LOCATION VERIFIED WITH [employer]. PT TOLERATED WELL. RELEASED FOR USE, PER HOSPITAL VASCULAR ACCESS POLICY.
--- NOTE | 2020-10-25 12:18 | EEG ---
[facility] [place] [address] ELECTROENCEPHALOGRAM Name: ALYSON DAVIS Room #: 244-P ADM IN M.R.#: [id number] Admission: 10/24/20 Attend Phys: Pernell Bo MD Discharge: Date of : 60 Report #: [id number] THIS REPORT FOR: //name// DATE OF SERVICE: 10/25/2020 HISTORY: The patient is a 60-year-old male who has a history of intractable seizures beginning at the age of 30. The patient is now on a combination of levetiracetam, Vimpat and Depacon. DESCRIPTION: Using the 10-20 electrode system, an EEG was performed at the bedside in the ICU. The record consists of low to moderate amplitude, intermittent 7 Hz posterior dominant rhythm, which attenuates with eye opening. The majority of the record consists of stage I sleep, which is characterized by attenuation of the background record. Low amplitude 20-25 Hz activity is seen over the bifrontal head regions consistent with beta activity secondary to medication effect from benzodiazepines. There may be some subtle slowing over the right temporal lobe. However, no epileptiform activity was seen during this recording. No seizures were recorded during this recording. IMPRESSION: This is an abnormal adult record consistent with mild slowing of the posterior dominant rhythm. This is a nonspecific finding that can be seen secondary to the postictal state or medication effect. Medication effect from benzodiazepines is seen on this recording and manifest as beta activity over the frontocentral head regions. <ELECTRONICALLY SIGNED> By: Alka Amor DO 10/25/20 1218 0939 1005 Alka Amor DO /nt
[2020-10-25 14:03] LABS: ABSOLUTE NEUTROPHILS 2.2 thou/uL (1.4-8.2); BASOPHILS 0.4 % (0.0-2.0); HEMATOCRIT 36.5 % (42.0-52.0); HEMOGLOBIN 12.2 gm/dL (14.0-18.0); LYMPHOCYTES 27.3 % (24.0-44.0); MCH 27.4 pg (26.0-34.0); MCHC 33.4 g/dL (28.0-37.0); MONOCYTES 5.8 % (1.0-8.0); PLATELET COUNT 109 thou/uL (150-400); POLYS 61.5 % (36.0-66.0); RBC 4.45 mil/uL (4.50-6.00); RDW 16.4 % (10.5-14.5); WBC 3.6 thou/uL (4.0-11.0)
[2020-10-25 14:20] LABS: APTT 24.8 Seconds (24.5-32.8); INR 1.05; PROTIME 11.4 Seconds (10.5-12.1)
[2020-10-25 14:20] LABS: URINE BILIRUBIN NEGATIVE (Negative); URINE BLOOD NEGATIVE (Negative); URINE CLARITY CLEAR; URINE COLOR YELLOW; URINE GLUCOSE-RANDOM* NEGATIVE (Negative); URINE KETONES NEGATIVE (Negative); URINE LEUKOCYTES-REFLEX NEGATIVE (Negative); URINE NITRITE-REFLEX NEGATIVE (Negative); URINE PROTEIN (DIPSTICK) NEGATIVE (Negative); URINE UROBILINOGEN 0.2 E.U./dl (0.2-1.0)
[2020-10-25 14:36] LABS: ANION GAP 6 mmol/L (7-16); BUN 7 mg/dL (7-18); CALCIUM 8.2 mg/dL (8.5-10.1); CHLORIDE 111 mmol/L (98-107); CO2 28 mmol/L (21-32); CREATININE 0.9 mg/dL (0.7-1.3); GLUCOSE 105 mg/dL (74-106); MAGNESIUM 1.9 mg/dL (1.8-2.4); PHOSPHORUS 3.2 mg/dL (2.5-4.9); POTASSIUM 3.9 mmol/L (3.5-5.1); SGOT 15 U/L (15-37); SGPT 23 U/L (30-65); SODIUM 145 mmol/L (136-145); TOTAL BILIRUBIN 0.5 mg/dL (0.2-1.0); TOTAL PROTEIN 6.3 g/dL (6.4-8.2); TROPONIN-I <0.06 ng/mL (<0.06)
[2020-10-25 14:58] LABS: FOLIC ACID 17.3 ng/mL (8.6-58.9)
--- NOTE | 2020-10-25 17:32 | NUR ---
PT ADMIT TO ICU APPROX 0930 FROM CCU. UPON ARRIVAL PT WAS POST-ICTAL. HAD 3 INSTANCES OF SEIZURE LIKE ACTIVITY RANGING FROM 30 SECONDS TO 3 MINUTES. PT AFEBRILE, ADEQUATE UOP (NEW SHEN PLACED), NO BM, NO NUTRITION ORDERED. SEIZURE PRECAUTIONS IN PLACE. EEG AT BEDSIDE. NAHEED ROSALES WAS INIATED DUE TO PT BEING HYPOTHERMIC. NOW NORMOTHERMIC. PICC LINE PLACED BY IV ACCESS TEAM, CONFIRMED PLACEMENT. PT A-PACED ON TELE. PT AND FAMILY HAVE BEEN THOUROUGHLY UPDATED AND EDUCATED ON PT CONDITION AND POC. PT SLOWLY PROGRESSING TOWARDS POC.
[2020-10-25 20:06] LABS: CORTISOL RANDOM 7.1 ug/dL (())
--- NOTE | 2020-10-25 21:27 | D ---
[facility] [place] [address] DISCHARGE SUMMARY Name: ALYSON DAVIS Room #: 244-P ADM IN M.R.#: [id number] Admission: 10/24/20 Attend Phys: Pernell Bo MD Discharge: Date of : 60 Report #: [id number] THIS REPORT FOR: cc: FAM - Family physician unknown FAM - Family physician unknown Aftab Stuart DO ~ DATE OF SERVICE: 10/24/2020 INPATIENT PSYCHIATRIC DISCHARGE SUMMARY ATTENDING PSYCHIATRIST: Aftab Stuart DO WELD FITTER: Pernell Bo MD. DISCHARGE DIAGNOSES: Recurrent seizures, major depressive disorder. The patient was discharged to the [address] [place] [address] room #203 due to medical instability due to recurrent seizures. Medical neurologic care will be per the hospitalist. The patient is discharged n.p.o. due to his recurrent seizures. I did put discharge medication list, level of consciousness permitting aspirin 81 mg daily for heart protection, lacosamide 100 mg oral daily for seizures, amlodipine 5 mg oral daily for hypertension, gabapentin 300 mg oral 3 times a day for both seizures and pain control, atorvastatin 40 mg oral daily for hyperlipidemia, Eliquis 5 mg oral daily for history of atrial fibrillation and history of sick sinus syndrome, status post cardiac pacemaker placement, pantoprazole 40 mg oral daily for GERD. Hga1c 5.8 lipids wnl see ICU records for more lab work done after seizures began. REASON FOR ADMISSION: The patient was a transfer from [facility]. The records we got from [facility] were limited. Apparently, he had presented to [facility] after mild overdose on naproxen. The patient denied much of this, but according to the qualified mental health professional at [facility], [place]u [place], he had gotten a call that a friend of his of a heart attack at the [facility], became despondent over this. Once presented to the ER, he stated that he would jump off a bridge. The patient had a history of a serious overdose in 2010. Interestingly, I had not remembered this, but the patient had been admitted here at [facility] briefly in 09/2018. At that time, he had been sent to us for psychosis and suicidal ideation with plans. He also from the admission in 09/2018 had a history of medication noncompliance. He does live alone. HOSPITAL COURSE: The patient was admitted to the geriatric psychiatry unit. The patient was a suboptimal historian with regard to his medications, had him on risperidone 2 mg twice a day for his history of psychosis. He was denying symptoms of depression. The patient had done well on the morning of 10/24/2020. [address] [address] DISCHARGE SUMMARY Name: SUSANALYSON E Room #: 244-P ADM IN M.R.#: [id number] Admission: 10/24/20 Attend Phys: Pernell Bo MD Discharge: Date of : 60 Report #: [id number] On the afternoon of 10/24/2020, he developed these complex partial seizures, particularly involving his left upper extremity. Dr. Bo and I recalled at bedside. We initially treated him with 500 mg of Keppra IV push and the seizures continued to be advanced to 500 mg IV push. We still had subsequent seizures. He had had 5 or 6 over about a 2-hour period, elected to move him down to the CCU. Dr. Bo had spoken with Dr. Amor, the on-call neurologist. The patient was in guarded condition when myself and doctor of nursing practice brought him to the CCU. PHYSICAL EXAMINATION: VITAL SIGNS: Yesterday afternoon are as follows: Temperature 97.0, pulse 59, BP 131/86, O2 sat 100%. MUSCULOSKELETAL: Lying in bed, postictal. MENTAL STATUS EXAMINATION: This is a well-developed, ill-appearing black male appearing at least stated age. Attention impaired. Concentration impaired. Speech soft, intermittently intelligible. Unable to assess well for suicidality, homicidality, auditory, visual, or tactile hallucinations given his postictal state. Memory not able to be assessed. Insight impaired, judgment impaired. Fund of knowledge diminished, which is noted to be at his baseline. Prognosis of this patient is guarded given his psychiatric history, history of medication treatment noncompliance as well as the recurrent seizures, necessitating telemetry unit admission. Activity level will be per the hospitalist, but recommended bed and seizure precautions. Discharge time involved with this patient as well over 60 minutes yesterday. <ELECTRONICALLY SIGNED> By: Aftab Stuart DO 10/25/20 2127 0938 1141 Aftab Stuart DO /nt
[2020-10-26] VITALS (24 sets, daily range): BP systolic 88–146; BP diastolic 44–96
[2020-10-26 05:34] LABS: HEMOGLOBIN 12.2 gm/dL (14.0-18.0); MCH 27.3 pg (26.0-34.0); MCV 82.7 fL (80.0-100.0); RBC 4.47 mil/uL (4.50-6.00); RDW 16.8 % (10.5-14.5)
[2020-10-26 06:06] LABS: HIV ANTIBODY Non Reactive (Non Reactive)
[2020-10-26 06:19] LABS: ALBUMIN 2.8 g/dL (3.4-5.0); CALCIUM 8.1 mg/dL (8.5-10.1); MAGNESIUM 1.7 mg/dL (1.8-2.4); POTASSIUM 4.1 mmol/L (3.5-5.1); TOTAL BILIRUBIN 0.5 mg/dL (0.2-1.0)
--- NOTE | 2020-10-26 07:46 | NUR ---
ASSUMED CARE AT 1900. AFEBRILE OVERNIGHT, APACED ON TELE. NO SEIZURE ACTIVITY NOTED OVERNIGHT, AND PT WAS DROWSY BUT AROUSEABLE/AGREEABLE W/CARES OVERNIGHT. THIS AM, HE REPORTS HAVING BACK PAIN AND "WOULD LIKE SOMETHINGFOR PAIN FROM THE DOCTOR." NO OTHER CONCERNS, PROGRESSING TOWARDS GOALS.
--- NOTE | 2020-10-26 13:05 | HC ---
[facility] [place] [address] CONSULTATION Name: ALYSON BHAT Room #: 244-P [facility] IN M.R.#: [id number] Admission: 10/24/20 Attend Phys: Pernell Bo MD Discharge: Date of : 60 Report #: [id number] THIS REPORT FOR: cc: FAM - Family physician unknown FAM - Family physician unknown Alka Amor DO ~ NEUROLOGY CONSULTATION HISTORY OF PRESENT ILLNESS: The patient is a 60-year-old male who was initially seen in the emergency room of another facility, but transferred to [facility] for inpatient psychiatric care. During the admission, there was some confusion about the patient's medications, he is on Vimpat and Keppra. Because the dose of Keppra was not known, the Keppra was not restarted and the patient was placed on Vimpat 100 mg twice a day. Approximately a day and a half after admission to the psychiatric unit, the patient began to have seizures, which consist of head turning to the left. The seizures last for minutes. The patient was loaded yesterday with levetiracetam, is now on a maintenance dose of 1500 mg twice a day. The Vimpat was also changed to IV and he is now on 100 mg q.12 hours. He had also been given doses of Valium and lorazepam and when the seizures continued, he was given Depakote 250 mg IV q.6 hours. In total, the patient received in total 6 mg of lorazepam and a total of 20 mg of diazepam. The patient was transferred to the CCU. When I came to see the patient this morning, the nurse told me that he was being transferred to the ICU because he continued to have seizures and his blood pressure was low. The patient is now in the ICU. When I initially saw him, he had a seizure with head turning to the left. His eyes were closed tight. There was no jerking of the extremities. The patient was given lorazepam 0.5 mg rather than the 2 mg dose. The patient is being checked for sepsis and because he became hypothermic, his temperature was 96 degrees Fahrenheit. He is now on the Soumya Hugger. His vital signs are stable now. I had the opportunity to speak to his sister, Marycruz Bhat. She told me that her brother began having seizures at the age of 30. The first time he had seizures, he had 66 of them. She also told me that 3 weeks ago, he was hospitalized at [facility] and they also had a hard time controlling his seizures. She told them not to give as much medication and she thought that that was helpful. I asked her if he drank alcohol and she said yes he does. She believes him to be an alcoholic. He lives alone. She is also not sure that he takes his medication properly because when she was over visiting him, she saw that he was taking his evening medicine in the morning. She knows that he goes to [facility], but she also thinks he goes to [facility] and may have a [facility] [address] [place] [address] CONSULTATION Name: ALYSON BHAT Room #: 244-P [facility] IN ..#: [id number] Admission: 10/24/20 Attend Phys: Pernell Bo MD Discharge: Date of : 60 Report #: [id number] neurologist there. PAST MEDICAL HISTORY: Intractable seizure disorder, major depressive disorder, suicidal ideation, alcohol abuse, coronary artery disease, myocardial infarction, stroke in 2003 with residual left hemiparesis, bipolar disorder, schizophrenia, Dandy-Walker malformation. MEDICATIONS AT HOME: Atorvastatin 20 mg daily, aspirin 81 mg daily, Tylenol p.r.n., gabapentin 100 mg t.i.d., lacosamide 100 mg b.i.d., risperidone 1 mg at bedtime. ALLERGIES: PHENYTOIN, TUBERCULIN, SCLAVO TEST-PPD. VITAL SIGNS: Temperature 35.2, pulse rate 60, respiratory rate 19, blood pressure 101/63. LABORATORY WORK: Hematology, coagulation, and chemistry are pending. Serology, HIV antibody pending. IMAGING: CT of the head, no acute intracranial process. NEUROLOGIC EXAMINATION: Pupils midposition and mildly reactive to light. Corneal reflex is present. Oculocephalic reflex is present. The patient has movements of the arms and legs. Reflexes are trace throughout. Plantar responses are flexor. Coordination and gait cannot be tested due to his current condition. IMPRESSION: This patient has medically intractable epilepsy. 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 I believe Dr. Bo has requested the records from [facility] from the patient's hospital stay three weeks ago. The patient just completed his EEG. I was present during the recording. There may be some right temporal lobe slowing, but there was no epileptiform activity noted. The patient should continue levetiracetam 1500 mg b.i.d., lacosamide 100 mg b.i.d., and Depacon 250 mg b.i.d. If he has a seizure; however, I would only recommend the use of lorazepam 0.5 mg. He had a seizure when he came to the ICU and 0.5 mg seemed to work quite well. An MRI of the head was also ordered for the patient because of the intractable seizures. However, the nurse spoke to me and let me know that MRIs cannot be done on the weekend. [facility] [address] [place] [address] CONSULTATION Name: ALYSON BHAT Room #: 244-P ADM IN M.R.#: [id number] Admission: 10/24/20 Attend Phys: Pernell Bo MD Discharge: Date of : 60 Report #: [id number] I thank you for your kind referral of the patient. We will continue to follow him with you. <ELECTRONICALLY SIGNED> By: Alka Amor DO 10/26/20 1305 0934 2141 Alka Amor DO /nt
--- NOTE | 2020-10-26 17:30 | NUR ---
unsuccessful attempts to obtain requested medical records. girlfriend called regarding pt status, updated. no seizure activity today. mag replaced. tolerating thickened foods, applesauce, pudding and yogurt given till swallow study in am. pt slowly progressing.
--- NOTE | 2020-10-26 20:22 | NUR ---
PTS CALL LIGHT CAME ON. THIS NURSE RESPONDED. PT HAVING SEIZURE ACTIVITY LEFT ARM SHAKING. VALIUM 5 MG IV GIVEN.
--- NOTE | 2020-10-26 20:25 | NUR ---
CONT WTH SEIZURE ACTIVITY ATIVAN 0.5 MG IV GIVEN. SEIZURE FINALLY SUBSIDED AT 2025 LASTING APPROX 5 MINUITES. WILL CONT TO MONITOPR.
[2020-10-27] VITALS (25 sets, daily range): BP systolic 86–157; BP diastolic 38–96
--- NOTE | 2020-10-27 03:41 | NUR ---
PT AGAIN TURNED ON HIS CALL LIGHT. I RESPONDED AND FOUND HIM TO BE HAVING A SEIZURE OF LEFT ARM AND LEG ATIVAN GIVEN. LASTED APPROX 3 MINUTES
[2020-10-27 06:00] LABS: HEMATOCRIT 38.6 % (42.0-52.0); HEMOGLOBIN 12.8 gm/dL (14.0-18.0); MCH 27.6 pg (26.0-34.0); MCHC 33.1 g/dL (28.0-37.0); MCV 83.5 fL (80.0-100.0); RBC 4.63 mil/uL (4.50-6.00); RDW 16.7 % (10.5-14.5); WBC 4.6 thou/uL (4.0-11.0)
--- NOTE | 2020-10-27 06:00 | NUR ---
VSS PT AWAKE AND ALERT ORIENTED X 3 NO FURTHER SEIZURE ACTIVITY LUNGS CLEAR 2100 CC UO THIS SHIFT. PROGRERSSING TOWARD GOALSS SINUS RHYTHM WILL CONT TO MONITOR.
[2020-10-27 06:21] LABS: CALCIUM 8.5 mg/dL (8.5-10.1); CREATININE 0.9 mg/dL (0.7-1.3); MAGNESIUM 1.7 mg/dL (1.8-2.4); POTASSIUM 3.3 mmol/L (3.5-5.1)
--- NOTE | 2020-10-27 07:45 | NUR ---
0739 grand mal seizure affecting entire L side of body including head, shoulder, arm and leg with all moving beyond midline to right side of body. duration one minute. diazepam 5 mg iv given with seizure subsiding. 0745 another grand mal seizure. Ativan 0.25 mg iv administered. seizure duration 1 1/2 minutes. resting quietly with resp even and unlabored.
--- NOTE | 2020-10-27 08:30 | NUR ---
call returned from Dr. Flores, updated on pt status.
--- NOTE | 2020-10-27 08:39 | NUR ---
pt pulling self around in the bed. doubled over at the waist with his head hanging over the bedrail. then sitting up in bed with eyes wide open, pulling gown and linen off.
--- NOTE | 2020-10-27 09:00 | NUR ---
pt had 2 additional type seizures, resolved spontaneously, resp even and unlabored.
--- NOTE | 2020-10-27 09:27 | NUR ---
Cm notified by bedside nurse during am rounds, that going to need transfer for cont. video monitoring EEG r/t seizure activity. Will send out referral for transfer as discussed during am [facility] rounds.
--- NOTE | 2020-10-27 09:42 | NUR ---
Dr. Flores present, updated. plan for transfer to [facility]. Shamika Davis, neurology tech present to perform eeg.
[2020-10-27 12:18] LABS: AMP/METHAMP Negative (Negative); BARBITURATES Negative (Negative); BENZODIAZEPINES POSITIVE (Negative); COCAINE Negative (Negative); METHADONE Negative (Negative); OPIATES Negative (Negative); PCP Negative (Negative)
--- NOTE | 2020-10-27 15:07 | NUR ---
faxed and requested medical records from [facility]. still have not received any records. called again, message left for records to be sent and a return call.
--- NOTE | 2020-10-27 19:39 | NUR ---
updated Rosanna Bhat- sister that pt will remain at [facility] for rehab medicine in the icu. he will not be transferring to another hospital for continous video/eeg monitoring since bed unavailable. Dr. Flores present to see pt. pt consumed evening meal, well tolerated. no seizure activity since flotation operator. pt progressing.
--- NOTE | 2020-10-27 23:17 | NUR ---
PT STARTED HAVING RIGHT SIDED SEIZURE AT 2312; RIGHT ARM AND LEG SHAKING, PATIENT NOT RESPONSIVE TO VERBAL OR TACTILE STIMULI. VALIUM 5 MG IVP GIVEN AND SEIZURE STOPPED AT 2316; PT MUMBLING AT THIS TIME, STILL POST DICTAL.
--- NOTE | 2020-10-27 23:31 | NUR ---
Pt had second seizure involving rocking of trunk of body starting at 2325 and ending at 2327.
[2020-10-28] VITALS (16 sets, daily range): BP systolic 78–171; BP diastolic 37–92
--- NOTE | 2020-10-28 01:49 | NUR ---
Pt's sister, Rosanna, called to check on pt. Updated on pt status.
--- NOTE | 2020-10-28 03:33 | NUR ---
At 0308 pt having having shaking of upper torso and arms; Valium 5 mg IVP given and shaking stopped. At 0330 pt had shaking of lower extremities for approximately 1 minute.
[2020-10-28 05:47] LABS: CALCIUM 8.4 mg/dL (8.5-10.1); CREATININE 0.9 mg/dL (0.7-1.3); MAGNESIUM 1.7 mg/dL (1.8-2.4); POTASSIUM 3.7 mmol/L (3.5-5.1)
--- NOTE | 2020-10-28 08:50 | NUR ---
Spoke with hermelindo with [facility], will check and see if have any beds today and if they are open to transfers yet per hermelindo.
--- NOTE | 2020-10-28 18:39 | NUR ---
PATIENT IS ALERT AND ORIENTED TO PERSON, PLACE AND TIME. PATIENT HAD SEIZURE LIKE ACTIVITY X 3 TODAY. PATIENT CALM AND COOPERATIVE. URINE OUTPUT ADEQUATE. WILL CONTINUE TO MONITOR.
[2020-10-29] VITALS (11 sets, daily range): BP systolic 100–144; BP diastolic 58–94
--- NOTE | 2020-10-29 04:58 | NUR ---
PT REMAINS A/O X3. CONFUSED AT TIMES ON TIME. NO SEIZURES DURING THIS TOD. AFEBRILE. REMAINS ON RA. VSS. SHEN IN PLACE WITH GOOD U/O. PT HAS TX ORDERS. REPORT CALLED TO 2N RN. VASQUES OFF THE UNIT AT APPROX 0400. ATTACHED TO THE MONITOR. ALL QUESTIONS ANSWERED. DENIES NEEDS
--- NOTE | 2020-10-29 07:44 | NUR ---
ASSUMED CARE OF PT AT 0450 TRANFER FROM ICU, PT IS A/O X 3. ASSESSMET COMPLETED NOTED. AT 0522 PT HAD SEIZURE X 3 MINUTES, LORAZEPAM GIVEN WITH RESOLUTION. PT C/O BEING TIRED AFTER SEIZURE, PT HAD TWO MORE WITNESSED SEIZURES, [employer] SAL[employer] UNIT SALES LEADER NOTIFIED, WILL CONTINUE TO MONITOR AND WORK TOWARDS PT'S POC.
--- NOTE | 2020-10-29 12:23 | EEG ---
[facility] [place] [address] ELECTROENCEPHALOGRAM Name: ALYSON DAVIS Room #: 203-P ADM IN M.R.#: [id number] Admission: 10/24/20 Attend Phys: Pernell Bo MD Discharge: Date of : 60 Report #: [id number] THIS REPORT FOR: //name// DATE OF SERVICE: 10/27/2020 This patients's EEG was done to evaluate for the possibility of seizure. EEG was done by placing the electrode by standard 10-20 system of electrode placement. Both referential and sequential montages were used for recording. Background activity in this patient's EEG is about 9 Hz and 30 microvolt. The patient became drowsy that is associated with bilateral slowing. Photic stimulation is unremarkable. Throughout the record, no active epileptiform activity was noticed. IMPRESSION: This patient's EEG is within normal limits. It does not show any active epileptiform activity. Thank you very much for this referral. <ELECTRONICALLY SIGNED> By: James Flores MD 10/29/20 1223 1140 1228 James Flores MD /nt
[2020-10-29] MEDS ORDERED: DIVALPROEX SOD250 M1 PO (13:04)
[2020-10-29] MEDS ORDERED: A THRU Z ADVAN1 EAC1 PO (13:04)
[2020-10-29] MEDS ORDERED: KEPPRA 500 MG500 M1 PO (13:04)
[2020-10-29] MEDS ORDERED: VIMPAT50 MG PO (13:04)
[2020-10-29] MEDS ORDERED: VITAMIN B-1100 M2 PO (13:04)
--- NOTE | 2020-10-29 13:08 | NUR ---
Pt cleared by neuro for dc to outpt f/u. Pt wants to return home vs snf. He did well in therapy walking 150'sba with 4ww which he has at home. His sister is here at bedside and indicates that she will be with him all the time and assist with his f/u appointments and making sure he does not have access to alcohol. Discussed with the care team. Both are agreeable to HH [place] and deny a preference. Referral called to [facility] and they are reviewing. Pt notes his pcp is at [facility] Cruzito Zhang.
--- NOTE | 2020-10-29 15:48 | NUR ---
ASSUMED CARE SHIFT CHANGE. VSS. NO S/SX SEIZURES THIS SHIFT. FAMILY MEMBER AT BEDSIDE. FALL AND SEIZURE PREC IN PLACE. DC ORDERS, DISCUSSED WITH FAMILY AND FAMILY FRIEND AT BEDSIDE. HOME HEALTH ORDERS. PICC REMOVED .SHEN REMOVED. PT LEFT WITH ALL BELONGINGS
--- NOTE | 2020-10-29 22:24 | HC ---
[facility] [place] [address] CONSULTATION Name: ALYSON BHAT Hernando Room #: 203-P [facility] IN M.R.#: [id number] Admission: 10/24/20 Attend Phys: Pernell Bo MD Discharge: 10/29/20 Date of : 60 Report #: [id number] THIS REPORT FOR: cc: FAM - Family physician unknown FAM - Family physician unknown Aftab Stuart DO ~ DATE OF SERVICE: 10/27/2020 PSYCHIATRY CL CONSULTATION PRIMARY ATTENDING: Pernell Bo MD CONSULTING PSYCHIATRIST: Aftab Stuart DO REASON FOR CONSULTATION: Concern for major neurocognitive disorder as well as assistance with management of this patient. SPECIAL NOTE: The patient had previously been hospitalized on the [facility] briefly on 10/23/2020 and 10/24/2020 and was discharged to the CCU due to appearance of seizures. SOURCES OF INFORMATION: Interview with patient, extended telephone conversation with his sister, Rosanna Bhat, chart review, discussions with Dr. Bo. Time spent on this case was around 90 minutes today. CHIEF COMPLAINT: Unspecified. HISTORY OF PRESENT ILLNESS: This is a 60-year-old black male known to me from 2 prior, but brief geriatric psychiatry hospitalizations. The patient had been admitted medically on 10/24/2020 after he developed serial seizures on the afternoon of 10/24/2020 while on the [facility]. This admission of the patient originated from the [facility] on Tuesday night when he was sent to us under the guise of suicidality. Upon the patient presenting here at [facility], he has not been suicidal. I administered the [facility] Mental Status Examination, the patient scored a total of 10/30. Deficits were noted on not knowing what states he was in, 0/3 on the making change questions, 1/3 a total of 8 animals named in a minute, 3/5 on delayed recall for 5 items, 0/2 on reverse digit span, he only got that to 2 digits, the 8-7, 7-8, 0/4 on clock drawing, and was 2/2 on the figure identification and 2/8 on the cued memory. The patient denied SI, HI, denied auditory, visual, or tactile hallucinations. Stated he felt good. 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 [address] [address] CONSULTATION Name: ALYSON BHAT Room #: 203-P DIS IN M.R.#: [id number] Admission: 10/24/20 Attend Phys: Pernell Bo MD Discharge: 10/29/20 Date of : 60 Report #: [id number] PSYCHIATRIC HISTORY: Suicidal ideation, alcohol use disorder. ADDITIONAL MEDICAL HISTORY: Coronary artery disease, history of myocardial infarction, stroke reportedly in 2003 with residual left hemiparesis. ALLERGIES: PHENYTOIN, TUBERCULIN, SCLAVO TEST FOR PPD, ALL CAUSING HIVES. CT of the head done this admission showed no acute intracranial process. Supposedly, an MRI was ordered today, but does not appear to be done. He is now on IV Keppra, IV Depacon and Vimpat. Active meds including aspirin, lacosamide, amlodipine, gabapentin, atorvastatin, apixaban, pantoprazole. Keppra was given IV push initially on the [facility], then downstairs. No pertinent family history. He is an everyday smoker. In terms of alcohol use, he came down according to sister to 3-1/2 pints of whiskey. It is unknown when was his last alcohol use. The patient denied complaints today when I attempted to do review of systems. LABORATORY DATA: Current lab work in the ICU: Most recent CBC on 10/27/2020, white count 4.6, H and H 12.6, hematocrit 38.6, platelet count 111. Coags on 10/25/2020, PT 11.4, INR 1.05, APTT 24.8. Sodium 138, potassium 3.3, chloride 109, bicarbonate 26, anion gap 3, BUN 3, creatinine 0.9, estimated GFR 104, glucose 92, calcium 8.5, magnesium 1.7, total protein 6.0, albumin 2.8. Urinalysis was clean done on 10/25/2020. Toxicology screen positive for benzodiazepines. HIV 1 and 2 serology was nonreactive. Some additional chemistries done this admission, random cortisol 7.1, which is normal. Free T4 normal at 1.0. TSH normal at 1.524. Procalcitonin less than 0.05. Folate 17.3. Vitamin D 35.8. B12 of 681. Cultures done this admission, blood cultures negative x2. PHYSICAL EXAMINATION: VITAL SIGNS: Today, afebrile, pulse 61, respiratory rate 16, BP 86/49, O2 sat 99%. Most recent temperature earlier this morning was 36.4. GENERAL: Lying in ICU bed with seizure precautions in place. MENTAL STATUS EXAMINATION: This is a well-developed, unkempt black male appearing stated age. Attention impaired. Concentration impaired. Speech slow, very soft. Thought process linear, limited. Thought content, fair poverty of thought. He did report to me when asked what he wanted to do when he got home was people to have him over for dinner. The patient denied suicidal or homicidal ideation, auditory, visual, or tactile hallucinations. Denied hopelessness, helplessness. Mood and affect were constricted, congruent. Memory formally tested, impaired as described. Insight is impaired, judgment is impaired. Fund of knowledge below average. [facility] [address] [place] [address] CONSULTATION Name: ALYSON BHAT Room #: 203-P [facility] IN [facility].#: [id number] Admission: 10/24/20 Attend Phys: Pernell Bo MD Discharge: 10/29/20 Date of : 60 Report #: [id number] EDUCATIONAL HISTORY: The patient reported he may have to the 10th grade. Sister says only to the 5th grade. He was at the [employer]. He does have learning disabilities, possible intellectual disability mental retardation. Sister states he has a girlfriend named Bernie that does not use drugs. Besides smoking, the patient is known to use marijuana. He has had no history of neurosurgery. Evidently, after his mother and father passed, the patient has not been able to take care of himself or cope well. FORMULATION: A 60-year-old black male medically admitted since last Tuesday, now in ICU, continues seizures that are suspected to be more nonepileptiform than epileptiform. Primary team has not been able to place the unit for video EEG examination. 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 He is reportedly on social security disability. Other comorbidities include coronary artery disease, hyperlipidemia. PLAN: The patient is admitted under care of Dr. Bo in the . Continue efforts to make sure he stays seizure free. Regarding the patient's cognition and ability to care for himself, I find that he lacks capacity to make healthcare and living decisions. I have requested common evaluation of living skills. The patient's sister reports she is the DPOA, but we do not have documentation. I explained that would need to be brought in to certainly enact as DPOA and, in this case, I believe get him placement. Time spent on this case today as stated in the 90-minute range. <ELECTRONICALLY SIGNED> By: Aftab Stuart DO 10/29/20 2224 [id number] Aftab Stuart DO /nt
[2020-10-31 20:06] LABS: SYPHILIS AB Non Reactive (Non Reactive)
== END 2020-10-29 14:45 | disposition home health service (06) | DRG 100 ==
LOC: ICU 17:13 → 2N 17:15 → ICU 17:15 → 2N 10-29 05:06
PROVIDERS: Hospitalist; Nurse Practitioner Family; Psychiatry & Neurology Neuromuscular Medicine; ADMIT Internal Medicine; ATTEND Internal Medicine
PROC: 05HY33Z Insertion of Infusion Device into Upper Vein, Percutaneous Approach (ICD-10-PCS; principal; 2020-10-25)
DX: G40.219 Localization-related (focal) (partial) symptomatic epilepsy and epileptic syndromes with complex partial seizures, intractable, without status epilepticus (principal); G93.41 Metabolic encephalopathy; I69.354 Hemiplegia and hemiparesis following cerebral infarction affecting left non-dominant side; F31.9 Bipolar disorder, unspecified; I25.10 Atherosclerotic heart disease of native coronary artery without angina pectoris; F20.9 Schizophrenia, unspecified; F17.210 Nicotine dependence, cigarettes, uncomplicated; E78.5 Hyperlipidemia, unspecified; T68.XXXA Hypothermia, initial encounter; I48.0 Paroxysmal atrial fibrillation; F19.10 Other psychoactive substance abuse, uncomplicated; F10.10 Alcohol abuse, uncomplicated; F14.10 Cocaine abuse, uncomplicated; Z79.82 Long term (current) use of aspirin; I25.2 Old myocardial infarction; Q03.1 Atresia of foramina of Magendie and Luschka; Z79.899 Other long term (current) drug therapy; Z88.8 Allergy status to other drugs, medicaments and biological substances
CPT/HCPCS: 10081; 10203; 27000; 50455